=== PATIENT | male | born 1995 | race Caucasian/White ===

== ENCOUNTER 2016-09-09 09:15 | Emergency (ER) | payer SELFPAY ==
--- NOTE | 2016-09-09 10:04 | ER Document Report ---
HPI - HPI Patient complains to provider of: cut arm on metal Onset: Just prior to arrival Onset/Duration: Sudden Pain Level: Denies Context: 20 yo male whose tetanus is current cut lef mid forearm on metal while at work on [employer]. Associated Symptoms: None Exacerbated by: Denies Relieved by: Denies - ROS ROS below otherwise negative: Yes Systems Reviewed and Negative: Yes All other systems reviewed and negative Past Medical History - General Information source: Patient - Social History Smoking Status: Unknown if Ever Smoked Frequency of alcohol use: None Drug Abuse: None Lives with: Family Family History: Reviewed & Not Pertinent - Medical History Medical History: Negative Surgical Hx: Negative Vertical Provider Document - CONSTITUTIONAL Agree With Documented VS: Yes Exam Limitations: No Limitations General Appearance: No Apparent Distress - HEENT HEENT: Normocephalic - NECK Neck: Supple - MUSCULOSKELETAL/EXTREMETIES Musculoskeletal/Extremeties: MAEW, FROM, Tender - cut left volar forearm - NEURO Level of Consciousness: Awake, Alert, Appropriate Motor/Sensory: No Motor Deficit, No Sensory Deficit Procedures - Laceration/Wound Repair Left Arm Time completed: 11:00 Wound length (cm): 2.5 Wound's Depth, Shape: Linear, Other - to subq fat only Laceration pre-procedure: Sterile drapes applied, Other - surgiscrub Anesthetic type: 1% Lidocaine Volume Anesthetic (mLs): 7 Wound explored: Clean Irrigated w/ Saline (mLs): 100 Suture Size/Type: 3:0, Nylon Number of Sutures: 4 - vertical mattress Post-procedure NV exam normal: Yes Complications: No Discharge - Discharge Clinical Impression: left forearm laceration repair Condition: Good Disposition: HOME, SELF-CARE Instructions: Antibiotic Ointment Protection ([facility]), Laceration Care ([facility]) Additional Instructions: sutures out in 12 days to er any signs of infection or concerns keep clean and dry bacitracin for 2 days Please complete the patient satisfaction survey if you get one, and return it.. If you do not receive a survey, then you can go to the [facility] website, [email or web address] and place your comments about your very good care. Thank you very much. It was a pleasure being your medical provider today. Forms: Return to Work Referrals: [facility] [place] [Primary Care Provider] - Follow up as needed
[2016-09-09] MEDS ORDERED: LIDOCAINE 1% INJ-PF (10 MG/ML) 30 ML SDV INJ ONE (10:33)
[2016-09-09] MEDS ORDERED: LIDOCAINE 1% INJ-PF (10 MG/ML) 30 ML SDV ONE (11:03)
[2016-09-09 11:27] VITALS: BP 120/52
== END 2016-09-09 11:28 | disposition home or self-care (01) ==
LOC: ER 09:15
PROC: 0HQEXZZ Repair Left Lower Arm Skin, External Approach (ICD-10-PCS; principal; 2016-09-09)
DX: S51.812A Laceration without foreign body of left forearm, initial encounter (principal); W26.9XXA Contact with unspecified sharp object(s), initial encounter
CPT/HCPCS: 99282